=== PATIENT | female | born 1980 | race Caucasian/White ===

== ENCOUNTER 2017-02-06 19:31 | Emergency (ER) | payer OTHER ==
--- NOTE | 2017-02-06 19:57 | CPEKG ---
Heart Rate: 81 RR Interval: 741 P-R Interval: 148 QRSD Interval: 86 QT Interval: 412 QTC Interval: 479 P [place]: 74 QRS [place]: 84 T Wave [place]: 42 EKG Severity - BORDERLINE ECG - EKG Impression: SINUS RHYTHM EKG Impression: BORDERLINE PROLONGED QT INTERVAL Electronically Signed By: Dany Craft 06-Feb-2017 20:10:15
[2017-02-06] MEDS ORDERED: NS 1,000 ML IV ONE (20:06)
--- NOTE | 2017-02-06 20:09 | EDPHY ---
H & P Time Seen by Provider: 02/06/17 19:50 HPI/ROS: CHIEF COMPLAINT: Passed out HISTORY OF PRESENT ILLNESS: History from EMS and patient. Patient was getting massage at [employer] because she was feeling stressed. This started around 6: 30 p.m.m she was sitting with her head down in a massage chair, massage was only on the posterior portion of her neck with no spinal manipulation. About 10 minutes or 15 minutes into it she felt sweaty and nausea, dry mouth, sat up was lightheaded and had an episode of syncope. She is unclear how long she was out. There is report of some muscle twitching but she did not have incontinence , did not bite her tongue, was not confused afterwards. Did remember hyperventilating and then felt like her hands were clenching and she could not straighten them out, and she had numbness and tingling in her chest and her and her face. Now she feels better although she is not entirely back to normal. Called [employer] but the RP was no longer at work and unable to speak directly to that person. REVIEW OF SYSTEMS: Eye: no change in vision ENT: no sore throat Cardiac: No chest pain or palpitations Pulmonary: no cough or SOB Abdomen: no vomiting, diarrhea, abdominal pain Musculoskeletal: no back pain or neck pain Skin: no rash Neuro: Mild left-sided headache Constitutional: no fever : no urinary symptoms A comprehensive 10 point review of systems is otherwise negative aside from elements mentioned in the history of present illness. PAST MEDICAL HISTORY: Concussion 2 and half years ago, tonsillectomy. 2 prior episodes of syncope one at lunch at a restaurant when it was hot, and one in [place] where she was living before moving to [place], did not seek formal medical evaluation for either one. Social history: No alcohol or drugs today General Appearance: Alert and conversant, cooperative. Eyes: No scleral icterus. Extraocular motion intact. Pupils 3 mm reactive to light. ENT, Mouth: Normal mucous membranes. No tongue laceration or abrasion. Respiratory: Normal respiratory effort, breath sounds equal, lungs are clear to auscultation. Cardiovascular: Regular rate and rhythm. No murmur auscultated. Gastrointestinal: Abdomen is soft and non tender. Neurological: Alert and oriented x3. Normally conversant. Face symmetric. She has a 4+/5 assistant nurse manager strength in the left hand but 5/5 strength in all 3 other extremities. Finger to nose normal bilaterally. Skin: Warm and dry, no rashes. Musculoskeletal: No peripheral edema and no joint swelling. Psychiatric: Not agitated. Still moderately anxious. Emergency Department course/MDM: Noncontrast head CT for syncope or seizure with asymmetric assistant nurse manager strength and left-sided headache. EKG reviewed is normal. Labs to include chemistries and . 2135: Feels better, equal assistant nurse manager strength now, back to normal mental status. Venous CO2 more likely related to hyperventilation. No headache now, assistant nurse manager strength asymmetry more likely related to residual hand cramping from carpal spasm earlier. ICH or ischemic stroke or vascular dissection thought less likely. Smoking Status: Never smoked Constitutional: Initial Vital Signs Temperature (C) 36.3 C 02/06/17 19:40 Heart Rate 86 02/06/17 19:40 Respiratory Rate 16 02/06/17 19:40 Blood Pressure 116/78 02/06/17 19:40 O2 Sat (%) 100 02/06/17 19:40 O2 Delivery Mode Room Air Allergies/Adverse Reactions: No Known Allergies Allergy (Unverified 02/06/17 19:43) Home Medications: Medication Instructions Recorded Paxil 20mg (*) 20 mg 02/06/17 Medical Decision Making - Diagnostics EKG Interpretation: EKG for syncope: 12-lead EKG interpreted by me; official reading is in trace master. My interpretation is sinus rhythm rate 81 with QT 412. Imaging Results: Imaging Impressions Head CT 02/06/17 20:06 Impression: Normal brain. No acute intracranial hemorrhage or mass. Findings discussed with emergency department physician, Dany Craft MD on February 06, 2017 at 9:07 p.m. Differential Diagnosis: Differential includes but not limited to vasovagal syncope, cardiac rhythm problem, seizure, vascular dissection, hypotension. - Data Points Laboratory Results: Laboratory Results 02/06/17 19:56 02/06/17 19:56 02/06/17 02/06/17 02/06/17 19:56 19:56 19:56 WBC 7.43 10^3/uL 10^3/uL (3.80-9.50) RBC 4.68 10^6/uL 10^6/uL (4.18-5.33) Hgb 15.0 g/dL g/dL (12.6-16.3) Hct 42.2 % % (38.0-47.0) MCV 90.2 fL fL (81.5-99.8) MCH 32.1 pg pg (27.9-34.1) MCHC 35.5 g/dL g/dL (32.4-36.7) RDW 12.6 % % (11.5-15.2) Plt Count 304 10^3/uL 10^3/uL (150-400) MPV 10.3 fL fL (8.7-11.7) Neut % (Auto) 62.9 % % (39.3-74.2) Lymph % (Auto) 27.3 % % (15.0-45.0) [place] % (Auto) 7.3 % % (4.5-13.0) Eos % (Auto) 1.3 % % (0.6-7.6) Baso % (Auto) 0.7 % % (0.3-1.7) Nucleat RBC Rel Count 0.0 % % (0.0-0.2) Absolute Neuts (auto) 4.67 10^3/uL 10^3/uL (1.70-6.50) Absolute Lymphs (auto) 2.03 10^3/uL 10^3/uL (1.00-3.00) Absolute Monos (auto) 0.54 10^3/uL 10^3/uL (0.30-0.80) Absolute Eos (auto) 0.10 10^3/uL 10^3/uL (0.03-0.40) Absolute Basos (auto) 0.05 10^3/uL 10^3/uL (0.02-0.10) Absolute Nucleated RBC 0.00 10^3/uL 10^3/uL (0-0.01) Immature Gran % 0.5 % % (0.0-1.1) Immature Gran # 0.04 10^3/uL 10^3/uL (0.00-0.10) Sodium 138 mEq/L mEq/L (134-144) Potassium 3.6 mEq/L mEq/L (3.5-5.2) Chloride 105 mEq/L mEq/L (97-110) Carbon Dioxide 18 mEq/l L mEq/l (22-31) Anion Gap 15 mEq/L mEq/L (8-16) BUN 12 mg/dL mg/dL (7-23) Creatinine 0.8 mg/dL mg/dL (0.6-1.0) Estimated GFR > 60 Glucose 101 mg/dL H mg/dL (70-100) Calcium 10.1 mg/dL mg/dL (8.5-10.4) Beta HCG, Qual NEGATIVE Medications Given: Discontinued Medications Sodium Chloride (Ns) 1,000 mls @ 0 mls/hr IV ONCE ONE; Wide Open PRN Reason: Protocol Stop: 02/06/17 20:07 Last Admin: 02/06/17 20:13 Dose: 1,000 mls Departure - Departure Disposition: Home, Routine, Self-Care Clinical Impression: Syncope Qualifiers: Syncope type: vasovagal syncope Qualified Code(s): R55 - Syncope and collapse Condition: Fair Instructions: Syncope (ED) Additional Instructions: Please follow-up this week with Dr. Solorzano at [facility], or any other internists in his practice. Referrals: Brett Solorzano MD [[facility] Primary Care Provider] - As per Instructions
[2017-02-06 20:13] LABS: % IMMATURE GRANULYOCYTES 0.5 % (0.0-1.1); ABSOLUTE IMMATURE GRANULOCYTES 0.04 10^3/uL (0.00-0.10); ADD DIFF? NO; ADD MORPH? NO; ADD SCAN? NO; ATYPICAL LYMPHOCYTE FLAG 0 (0-99); FRAGMENT RBC FLAG 0 (0-99); HEMATOCRIT 42.2 % (38.0-47.0); LEFT SHIFT FLG 0 (0-99); LIPEMIA HEMOLYSIS FLAG 90 (0-99); MEAN CELL HEMOGLOBIN 32.1 pg (27.9-34.1); MEAN CELL HEMOGLOBIN CONCENTR. 35.5 g/dL (32.4-36.7); MEAN CELL VOLUME 90.2 fL (81.5-99.8); MEAN PLATELET VOLUME 10.3 fL (8.7-11.7); PLATELET CLUMPS FLAG 0 (0-99); PLATELET COUNT 304 10^3/uL (150-400); RED BLOOD CELL COUNT 4.68 10^6/uL (4.18-5.33); RED CELL DISTRIBUTION WIDTH 12.6 % (11.5-15.2)
[2017-02-06 20:32] LABS: ANION GAP 15 mEq/L (8-16); CALCIUM 10.1 mg/dL (8.5-10.4); CARBON DIOXIDE 18 mEq/l (22-31); CHLORIDE 105 mEq/L (97-110); CREATININE 0.8 mg/dL (0.6-1.0); GLOMERULAR FILTRATION RATE > 60; GLUCOSE 101 mg/dL (70-100); POTASSIUM 3.6 mEq/L (3.5-5.2); SODIUM 138 mEq/L (134-144)
[2017-02-06 21:59] VITALS: BP 124/75; PULSE 97; RESP 16; TEMP 99.3; O2SAT 96
== END 2017-02-06 21:58 | disposition home or self-care (01) ==
DX: R55 Syncope and collapse (principal); E86.9 Volume depletion, unspecified